=== PATIENT | female | born 1990 ===

== ENCOUNTER 2023-03-24 18:32 | Observation (INO) | payer BC ==
[~2023-03-24] VITALS: Ht 177.8 cm; Wt 85.7 kg
[2023-03-24] MEDS ORDERED: PREN-96 PO (19:30)
[2023-03-24] MEDS ORDERED: BETAMETHASONE ACET (30mg/5ml) 5ml Vial 6mg/ml IM ONE (20:15)
[2023-03-24] MEDS ORDERED: NIF10C PO (20:27)
[2023-03-24] MEDS ORDERED: TERBUTALINE SULFATE 1 MG/ML 1ML VIAL SC ONE (20:58)
[2023-03-24] MEDS ORDERED: TERBUTALINE SULFATE 1 MG/ML 1ML VIAL SC SCH (21:00)
[2023-03-24] MEDS ORDERED: LACTATED RINGER'S 1,000 ML IV ONE (21:00)
== END 2023-03-24 22:24 | disposition home or self-care (01) ==
LOC: LDRP 18:32
PROVIDERS: ADMIT Obstetrics & Gynecology; ATTEND Obstetrics & Gynecology
DX: O60.03 Preterm labor without delivery, third trimester (principal); O46.93 Antepartum hemorrhage, unspecified, third trimester; Z3A.32 32 weeks gestation of pregnancy
CPT/HCPCS: 59025; 76805; 76818; 81002; 96360; 96361; 96372; G0378; J0702; J3105

== ENCOUNTER 2025-03-25 10:10 | Inpatient (IN) | payer BC ==
[~2025-03-25] VITALS: Ht 177.8 cm; Wt 91.2 kg
[~2025-03-25 10:10] MED LIST: NIFE10CA52 PO; PREN-96 PO
[2025-03-25 11:33] LABS: Hematocrit 33.8 % (36.0-46.0); Hemoglobin 11.4 g/dL (12.2-16.2); Mean Corpuscular Hemoglobin 27.3 pg (28.0-32.0); Mean Corpuscular Volume 81.0 fL (80.0-100.0); Nucleated Red Blood Cells % 0.2 %
[2025-03-25 11:43] LABS: Alanine Aminotransferase 13 U/L (7-40); Albumin 3.8 g/dL (3.2-4.8); Anion Gap 12 (5-15); BUN/Creatinine Ratio 10.5 (10.0-20.0); Bilirubin, Total 0.5 mg/dL (0.2-1.0); Glucose 105 mg/dL (74-106); Potassium 3.9 mmol/L (3.5-5.1); Sodium 138 mmol/L (136-145); Total Protein 6.9 g/dL (5.7-8.2); Uric Acid 3.9 mg/dL (3.1-7.8)
[2025-03-25 11:49] LABS: Alkaline Phosphatase 135 U/L (46-116); Blood Urea Nitrogen 6 mg/dL (9-23); Calcium 8.6 mg/dL (8.7-10.4); Carbon Dioxide 17 mmol/L (20-31); Chloride 109 mmol/L (98-107)
[2025-03-25] MEDS: METHYLERGONOVINE MALEATE 0.2 MG/ML AMP IM ONE (11:51)
[2025-03-25] MEDS: LACT. RINGERS/OXYTOCIN 20UNITS 500 ML IV ONE ×2 (12:04→12:05)
[2025-03-25 12:15] LABS: INR 0.98 (0.9-1.15); Partial Thromboplastin Time 29.3 SEC (24.5-34.5); Prothrombin Time 10.4 sec (9.3-11.8)
[2025-03-25] MEDS ORDERED: ONDANSETRON ODT 4 MG TAB PO PRN (12:15)
[2025-03-25] MEDS ORDERED: ACETAMINOPHEN 325 MG TAB PO PRN (12:15)
--- NOTE | 2025-03-25 12:15 | DVHHP2 ---
Adm. Physical Exam Sex Sex female Type of delivery/ Score [place] score score at 1 min = score at 5 min= scor e at 10 min= MS/Skin Remarks: ERROR / wrong patient CRESENCIO BEASLEY MD Mar 25, 2025 12:15
[2025-03-25] MEDS: LIDOCAINE 2%HCL (LOCAL ANESTH.) INJ 20ML MDV IJ PRN (12:16)
[2025-03-25] MEDS: IBUPROFEN 600 MG TAB PO PRN (12:32)
--- NOTE | 2025-03-25 13:19 | DVHHP2 ---
OB CC & HPI Date Date of Admission: Mar 25, 2025 Patient Identification: : 3 Para: 2 EDC: Apr 24, 2025 EGA: 35.5 wks Chief Complaints: Reason for admission: active labor Admission Nurse Assessment Rev: Yes History of Present Complaints 34yo IUP@35wks presents in labor. Pt reports UCs Q2 min that started today. Would like a natural labor, has a plan. Denies LOF/VB/LANDIS/vision changes/RUQ pain. Endorses +FM. PNC started at [facility] with Marisel Dubois CNM but pts care was transferred out to Dr. Streeter at [facility] in [place] due to PTL and dynamic cervix. No records available from Dr. Streeter. Dating based on LMP c/w first trimester sono. GBS not done. OB hx: 1. , 37 wks, uncomplicated 2. PTD, 31 wks, at [facility] 3. current Past Medical History Cardiac: No pertinent Hx Pulmonary: No pertinent Hx Central Nervous System: No pertinent Hx GI: No pertinent Hx Hemotology/Oncology: No pertinent Hx Hepatobiliary: No pertinent Hx Psychiatric: No pertinent Hx Musculoskeletal: No pertinent Hx Rheumotologic: No pertinent Hx Infectious Disease: No peritnent Hx ENT: No pertinent Hx Renal/: No pertinent Hx Endocrine: No pertinent Hx Dermatology: No pertinent Hx Past Surgical History: No pertinent Hx OB History OB History Care: Good Care Ultrasounds: Normal mid trimester US Obstetrical Complications: None Medical Complications: None Allergies: Coded Allergies: NO KNOWN ALLERGIES (Unverified , 03/24/23) Home Meds Active Scripts Nifedipine (PROCARDIA CAPSULE) 10 Mg Cp, 10 MG PO Q4HR for 30 Days, #180 CAP take until 36 weeks gestation Prov:DENISE DUBOIS CNM 03/24/23 Reported Medications Vit W/ Ferrous Fumara ( One Daily) Daily Tab, 1 TAB PO DAILY, #90 TAB 3 Refills 03/24/23 Home Meds progesterone Current Medications Current Medications Medications (Trade) Dose Ordered Sig/Markos Route PRN Reason Start Time Stop Time Status Last Admin Lactated Ringer's 1,000 ml @ 125 mls/hr Q8H IV 03/25/25 10:30 Niko Ayala (Tucks) 1 pad PRN PRN TOP PERINEAL AREA DISCOMFORT 03/25/25 10:30 Sodium Lauryl Sulfate (Phisoderm) 240 ml PRN PRN TOP PERINEAL AREA DISCOMFORT 03/25/25 10:30 Benzocaine (Dermoplast) 1 applic PRN PRN TOP PERINEAL AREA DISCOMFORT 03/25/25 10:30 Lidocaine HCl (Xylocaine) 20 ml ONCE PRN IJ PERINEAL AREA DISCOMFORT 03/25/25 10:30 03/25/25 12:16 Ibuprofen (Motrin Tablet) 600 mg Q6HP PRN PO MODERATE PAIN (4-6 PAIN SCALE) 03/25/25 12:15 03/25/25 12:32 Acetaminophen (Tylenol Tablet) 650 mg Q4HP PRN PO MILD PAIN (1-3 PAIN SCALE) 03/25/25 12:15 Ondansetron HCl (Zofran Po) 4 mg Q4HPRN PRN PO NAUSEA / VOMITING 03/25/25 12:15 Docusate Sodium (Colace Capsule) 200 mg HS PO 03/25/25 22:00 Family & Social History Family/Social History Past Family/Social History: denies Blood Type: O+ Rubella: immune RPR/VDRL: Negative GBS Status: Unknown HBsAG: Negative Review of Systems Constitutional: No symptom reported Ears, Nose, & Throat: No symptom reported Eyes: No symptom reported Pulmonary/Respiratory: No symptom reported Cardiovascular: No symptom reported Gastrointestinal: No symptom reported Genitourinary: No symptom reported Musculoskeletal: No symptom reported Skin: No symptom reported Psychiatric: No symptom reported Endocrine: No symptom reported Hemotologic/Lymphatic: No symptom reported OB Admission Exam Physical Exam Vitals: VSS See cpn HEENT: TMs Normal, Fontanelles Normal, Nasal Mucosa Normal, Eyes non-injected, Oropharynx Normal, PERRLA, Moist Membranes, EOMI Heart: Rhythm Normal Lungs: Clear Abdomen: Gravid Extremities: Normal Reflexes: Normal Cervical Dilatation: 8cm Effacement: 100% Station: 0 Membranes: Intact Heart Rate: 140's Accelerations: Accelerations Present Decelerations: No Decelerations Short Term Variability: Present Mcfp Variability: Average (6-25) Contractions on Admission: < 5 Minutes Apart Date/Time Contractions Began: 03/25/2025 Frequency of Contractions: 410 Duration: 60 Intensity: Mild OB Plan Plan Admitting Diagnosis: Labor Plan: Expectant Management Other Plan: A: 34yo IUP@35.5wks Active Labor Category I EFM Intact Membranes GBS unknown P: Admit to L&D Informed consent obtained Expectant management monitoring per order Routine labs ordered Pain mgmt PRN Frequent position changes in and out of bed encouraged Limit SVE unless necessary Intrauterine resuscitation PRN, RT and PEDS notified Anticipate Dr. Rios notified of pts admission. VESNA is co-managing care with Dr. Rios. Visit Coding OBGYN Date of Service: Mar 25, 2025 Billing Provider: DENISE DUBOIS CNM BOWLING PIN REFINISHER Common Visit Codes: [id number] INP/OBS CARE (HIGH) BOWLING PIN REFINISHER Procedure Codes: 61517-69- NON-STRESS TEST CATRACHO SUÁREZ STUDENTMDW Mar 25, 2025 13:19
[2025-03-25 14:07] LABS: Urine Protein, UAD TRACE (Negative)
[2025-03-25 14:08] VITALS: PULSE 88; RESP 18
[2025-03-25 14:21] LABS: Amphetamine Screen, Urine Neg (NEGATIVE); Barbiturate Scree,Urine Neg (NEGATIVE); Benzodiazephine Screen, Urine Neg (NEGATIVE); Cannabinoid Screen, Urine Neg (NEGATIVE); Cocaine Screen, Urine Neg (NEGATIVE); Opiate Scree,Urine Neg (NEGATIVE); Phencyclidine Screen, Urine Neg (NEGATIVE)
--- NOTE | 2025-03-25 14:22 | LDN2 ---
Labor and Delivery Note Date 03/25/25 Age 34 3 Para now 3 AB 0 EDC 04/24/2025 EGA 35.5 weeks Diagnosis Active pre-term labor then Vaginal Delivery: VTX Vacuum Assisted: No Placenta: Spontaneous Sex: Male Weight 6lbs 5oz Apgars 9/8 Nuchal Cord Transected: No Amniotic Fluid: Clear Anesthesia local Episiotomy: No Extension: No Repaired with 3-0 vicryl EBL 200 Labs Blood Bank 03/25/25 10:47: Blood Type O POSITIVE Complications None Conditions Stable Trust Accounts Supervisor SOMU Comments/Significant Med Tom At 1122 this 34yo now delivered a viable Male infant by w/ APGARS 8. ROP presentation, SROM with clear fluid at time of head delivery. placed skin to skin on pts chest. RT at bedside during . Cord clamped and cut after 1 minute delay. Cord blood sent. Intact 3-vessel cord placenta delivered spontaneously, Jordi. Fundus boggy, moderate lochia. Pt consented to IV pitocin. Patient had local anesthesia for laceration repair. Cervix/vagina inspected and first degree vaginal that extended to the left labial and paraclitoral lacerations were present and repaired with 3-0 vicryl suture. Boggy lower uterine segment noted, pt given x1 dose of Methergine IM. Fundus at U, firm, midline, and light lochia. QBL 200ml. VSS. Count correct x2. Patient to care and baby to nursery with RT. Visit Coding OBGYN Date of Service: Mar 25, 2025 Billing Provider: DENISE SANABRIA CNM CASTING TESTER Common Visit Codes: PROCEDURE ONLY CASTING TESTER Procedure Codes: [id number] DEL INCLUDING CATRACHO SUÁREZ STUDENTMDW Mar 25, 2025 14:22
[2025-03-25 15:00] VITALS: PULSE 88; RESP 18; TEMP 98.2; O2SAT 97
[2025-03-25 19:00] VITALS: BP 115/69; PULSE 98; RESP 16; TEMP 98.7; O2SAT 98
[2025-03-25] MEDS ORDERED: DOCUSATE SOD 100 MG CAP PO SCH (22:00)
[2025-03-25 23:20] VITALS: BP 120/73; PULSE 88; RESP 17; TEMP 98.2; O2SAT 97
[2025-03-26 03:00] VITALS: BP 119/78; PULSE 98; RESP 18; TEMP 99.3; O2SAT 97
--- NOTE | 2025-03-26 06:24 | DVHPN2 ---
Progress Note Date Seen: Mar 26, 2025 Subjective S: bleeding is less, eating food without issues, denies lightheaded/dizziness, pain well controlled with oral medications, no concerns with urinating, passing flatus, no BM yet, ambulating well, and supplementing with formula vital signs Vital Sign Date Time Temp Pulse Resp B/P (MAP) Pulse Ox O2 Delivery O2 Flow Rate FiO2 03/26/25 03:00 99.3 98 18 119/78 (92) 97 99.3 03/25/25 19:00 Room Air Total Intake and Output 03/25/25 03/25/25 03/26/25 15:00 23:00 07:00 Output Total 450 ml 500 ml Balance -450 ml -500 ml medications Current Medications Medications Dose Ordered Sig/Markos Route Start Time Stop Time Status Last Admin Dose Admin Lactated Ringer's 1,000 ml @ 125 mls/hr Q8H IV 03/25/25 10:30 Witch Lucy 1 pad PRN PRN TOP 03/25/25 10:30 Sodium Lauryl Sulfate 240 ml PRN PRN TOP 03/25/25 10:30 Benzocaine 1 applic PRN PRN TOP 03/25/25 10:30 Lidocaine HCl 20 ml ONCE PRN IJ 03/25/25 10:30 03/25/25 12:16 20 ML Ibuprofen 600 mg Q6HP PRN PO 03/25/25 12:15 03/25/25 12:32 600 MG Acetaminophen 650 mg Q4HP PRN PO 03/25/25 12:15 Ondansetron HCl 4 mg Q4HPRN PRN PO 03/25/25 12:15 Docusate Sodium 200 mg HS PO 03/25/25 22:00 laboratory and microbiology Laboratory Tests 03/25/25 10:47 Test 03/25/25 10:47 Range/Units Serum Glucose 105 74-106 mg/dL Objective O: VSS Chest: heart sounds normal and lung sounds clear bilaterally Abd: soft, non-tender, fundus at U/firm/midline, active bowel sounds, no rebound or guarding Perineum: sutures intact, edges well approximated, no erythema/edema noted Ext: Non-tender, No edema, 2+ BLE DTRs Lochia: minimal See lab results Problems(with codes): (1) Obstetric vaginal laceration without perineal laceration (2) Obstetric labial laceration, delivered, current hospitalization (3) delivery Assessment/Plan A/P: 34yo now PPD#1 s/p -Continue with routine PP care Plan discussed with: Patient, Spouse CATRACHO SUÁREZ STUDENTMDW Mar 26, 2025 06:24
[2025-03-26 07:10] VITALS: BP 118/69; PULSE 84; RESP 16; TEMP 97.9; O2SAT 98
[2025-03-26] MEDS: LACTATED RINGER'S 1,000 ML IV SCH (07:27)
[2025-03-26 09:36] LABS: Hematocrit 28.1 % (36.0-46.0); Hemoglobin 9.1 g/dL (12.2-16.2); Mean Corpuscular Hemoglobin 27.2 pg (28.0-32.0); Mean Corpuscular Volume 84.5 fL (80.0-100.0); Nucleated Red Blood Cells % 0.1 %
[2025-03-26 11:25] VITALS: BP 117/75; PULSE 82; RESP 16; TEMP 98.3; O2SAT 97
[2025-03-26 15:00] VITALS: BP 122/75; PULSE 88; RESP 16; TEMP 98.3; O2SAT 96
[2025-03-26 18:45] VITALS: BP 122/80; PULSE 88; RESP 14; TEMP 98.6; O2SAT 98
[2025-03-26] MEDS: WITCH HAZEL-GLYCERIN PAD TOP PRN (18:53)
[2025-03-26] MEDS: PHISODERM TOP SOLN 240ML BTL TOP PRN (18:53)
[2025-03-26] MEDS: DERMOPLAST 60ML BOTTLE TOP PRN (18:54)
[2025-03-26 23:03] VITALS: BP 116/70; PULSE 86; RESP 16; TEMP 98.4; O2SAT 96
[2025-03-27] MEDS ORDERED: DOCU-265 PO (00:39)
[2025-03-27] MEDS ORDERED: FER325T PO (00:39)
[2025-03-27] MEDS ORDERED: IBU600T PO (00:39)
--- NOTE | 2025-03-27 01:06 | DVHDS2 ---
Obstetrics Discharge Summary Obstetrics Discharge Summary Date of Admission: Mar 25, 2025 Date of Discharge: Mar 27, 2025 Reason For Admission: Labor Procedures: NST Intrapartum Procedures: Spontaneous vaginal deliv Procedures: Hct/date: (03/26/25), Hgb/date: (03/26/25) Operative Complicat: Laceration (paraclitoral, first degree vaginal that extended left labial) Discharge Diagnosis: Delivery Discharge Information: Activity (as tolerated, no heavy lifting and nothing in the vagina for six weeks), Diet (Routine as tolerated), Medications (rx sent), Instructions (Routine), Discharge to (Home), Accompanied by (spouse), Discarge date (03/27/25) Visit Coding OBGYN Date of Service: Mar 27, 2025 Billing Provider: DENISE SANABRIA CNM CARE ASSISTANT Common Visit Codes: 77833-ICM/OBS DISCH DAY <30MIN CATRACHO SUÁREZ STUDENTMDW Mar 27, 2025 01:06
--- NOTE | 2025-03-27 01:07 | DVHPN2 ---
Progress Note Date Seen: Mar 27, 2025 Subjective S: bleeding is less, eating food without issues, denies lightheaded/dizziness, pain well controlled with oral medications, no concerns with urinating, passing flatus, no BM yet, ambulating well, and supplementing with formula vital signs VSS see cpn Vital Sign Date Time Temp Pulse Resp B/P (MAP) Pulse Ox O2 Delivery O2 Flow Rate FiO2 03/26/25 23:03 98.4 86 16 116/70 (85) 96 98.4 03/26/25 19:00 Room Air medications see med sheet Current Medications Medications Dose Ordered Sig/Markos Route Start Time Stop Time Status Last Admin Dose Admin Lactated Ringer's 1,000 ml @ 125 mls/hr Q8H IV 03/25/25 10:30 Niko Ayala 1 pad PRN PRN TOP 03/25/25 10:30 03/26/25 18:53 1 PAD Sodium Lauryl Sulfate 240 ml PRN PRN TOP 03/25/25 10:30 03/26/25 18:53 240 ML Benzocaine 1 applic PRN PRN TOP 03/25/25 10:30 03/26/25 18:54 1 APPLIC Lidocaine HCl 20 ml ONCE PRN IJ 03/25/25 10:30 03/25/25 12:16 20 ML Ibuprofen 600 mg Q6HP PRN PO 03/25/25 12:15 03/25/25 12:32 600 MG Acetaminophen 650 mg Q4HP PRN PO 03/25/25 12:15 Ondansetron HCl 4 mg Q4HPRN PRN PO 03/25/25 12:15 Docusate Sodium 200 mg HS PO 03/25/25 22:00 laboratory and microbiology Laboratory Tests 03/26/25 08:34 03/25/25 10:47 Test 03/25/25 10:47 Range/Units Serum Glucose 105 74-106 mg/dL Objective O: VSS Chest: heart sounds normal and lung sounds clear bilaterally Abd: soft, non-tender, fundus at U/firm/midline, active bowel sounds, no rebound or guarding Perineum: sutures intact, edges well approximated, no erythema/edema noted Ext: Non-tender, No edema Lochia: minimal Problems(with codes): (1) delivery (2) Obstetric labial laceration, delivered, current hospitalization (3) Precipitous drop in hematocrit (4) Obstetric vaginal laceration without perineal laceration Assessment/Plan A/P: 34yo now PPD#2 s/p Rh+ Rubella Immune Breast and formula feeding P: D/C home today Rx sent to pharmacy precautions and preeclampsia warning signs reviewed F/U with [facility] office in 2 weeks Plan discussed with: Patient, Spouse Fluid Accumulation (N/A): N/A Reduced Silver Miner Strength (Non-Sev: N/A CATRACHO SUÁREZ STUDENTMDW Mar 27, 2025 01:07
[2025-03-27 03:27] VITALS: BP 125/68; PULSE 85; RESP 16; TEMP 98; O2SAT 97
[2025-03-27 07:00] VITALS: BP 103/55; PULSE 66; RESP 16; TEMP 97.8; O2SAT 98
[2025-03-27 11:00] VITALS: BP 117/60; PULSE 75; RESP 16; TEMP 98; O2SAT 97
== END 2025-03-27 14:05 | disposition home or self-care (01) | DRG 805 ==
LOC: UNDOADMOB 10:10 → LDRP 10:10 → INTOOBSV 10:30 → OBSVTOIN 10:30 → LDRP 03-26 14:13
PROVIDERS: ADMIT Obstetrics & Gynecology; ATTEND Obstetrics & Gynecology
PROC: 10E0XZZ Delivery of Products of Conception, External Approach (ICD-10-PCS; principal; 2025-03-25)
PROC: 0HQ9XZZ Repair Perineum Skin, External Approach (ICD-10-PCS; 2025-03-25)
DX: O70.0 First degree perineal laceration during delivery (principal); O60.14X0 Preterm labor third trimester with preterm delivery third trimester, not applicable or unspecified; Z37.0 Single live birth; Z3A.35 35 weeks gestation of pregnancy
CPT/HCPCS: 36415; 59025; 59409; 80053; 80307; 81001; 81002; 84550; 85025; 85610; 85730; 86780; 86803; 86850; 86900; 86901; 94760; 96365; 96366; G0378; J2590